=== PATIENT | male | born 1980 | race Caucasian/White ===

== ENCOUNTER 2018-06-30 06:53 | Emergency (ER) | payer MEDICAID ==
[2018-06-30] MEDS ORDERED: LIDOCAINE 2% VISCOUS 15 ML UDCUP PO ONE (07:03)
[2018-06-30] MEDS ORDERED: NS 1,000 ML IV ONE ×2 (07:03→08:22)
[2018-06-30] MEDS ORDERED: MAG HYDROX/AL HYDROX/SIMETH 30 ML UDCUP PO ONE (07:03)
[2018-06-30] MEDS ORDERED: ASPIRIN 81 MG CHEWABLE TAB PO ONE (07:03)
[2018-06-30] MEDS ORDERED: HYOSCYAMINE SULFATE 0.125 MG TAB PO ONE (07:03)
--- NOTE | 2018-06-30 07:07 | EDPHY ---
H & P Time Seen by Provider: 06/30/18 06:57 HPI/ROS: CHIEF COMPLAINT: Chest pain HISTORY OF PRESENT ILLNESS: Patient states that at 3:00 a.m. This morning he noticed some chest pain. He was awake as he was"not feeling right". The pain did not wake him up. He described it as pain in the upper back with sharp chest pain and pain to the"whole back". He also states there is pain radiating to left arm. He describes some diaphoresis although none now. At onset pain was dull, 4 to 5/10. He states it"kept ramping up"and was never gone since onset at 3:00 a.m.. Now it is about 8/10. He does describe some nausea but no vomiting. No diarrhea. Some shortness of breath but no wheezing. He states this feels completely different than his GERD. Patient denies any recent illnesses. Does drink alcohol, 6-8 beers couple days a week and had 6-8 beers last night. He did also take aspirin prior to arrival. He states he took 5- 325 mg aspirin tablets approximately 1 hr prior to arrival. He denies any recent exercise intolerance, dyspnea on exertion, leg swelling. REVIEW OF SYSTEMS: Constitutional: No fever, no chills. Eyes: No discharge. ENT: No sore throat. Cardiovascular: Per HPI no palpitations. Respiratory: No cough, some shortness of breath. Gastrointestinal: No abdominal pain, no vomiting. Nausea present. Genitourinary: No dysuria. Musculoskeletal: Upper back pain associated with this chest pain. Skin: No rashes. Neurological: No headache. General Appearance: Alert, no distress. Eyes: Pupils equal and round no pallor or injection. ENT, Mouth: Mucous membranes moist. Respiratory: There are no retractions, lungs are clear to auscultation. Cardiovascular: Regular rate and rhythm. No murmurs rubs or gallops, normal femoral pulses bilaterally. Gastrointestinal: Abdomen is soft and nontender, no masses, bowel sounds normal. Neurological: Awake, alert, no focal neurologic deficits. Skin: Warm and dry, no rashes. Musculoskeletal: Neck is supple nontender. Extremities are symmetrical, full range of motion, no edema. Psychiatric: Patient is oriented X 3, there is no agitation. Medical/surgical history: GERD Social history: 6-8 beers several days a week. No tobacco, uses cannabis. Smoking Status: Never smoked Constitutional: Initial Vital Signs Temperature (C) 36.5 C 06/30/18 06:55 Heart Rate 82 06/30/18 06:55 Respiratory Rate 18 06/30/18 06:55 Blood Pressure 141/89 H 06/30/18 06:55 O2 Sat (%) 96 06/30/18 06:55 O2 Delivery Mode Room Air Allergies/Adverse Reactions: No Known Allergies Allergy (Unverified 06/30/18 06:54) Home Medications: Medication Instructions Recorded Nexium 06/30/18 Medical Decision Making - Diagnostics EKG Interpretation: EKG performed for chest pain. EKG shows normal sinus rhythm with normal rate, normal axis, normal intervals. No ST T-wave changes to suggest ischemia or infarct. Impression normal EKG. 9:30 a.m. Repeat chest x-ray shows normal sinus rhythm at a rate of 50 for, no significant change from prior. Normal EKG. Imaging Results: Imaging Impressions Chest X-Ray 06/30/18 07:04 Impression: Suspect airways disease with no superimposed acute abnormality identified. Chest x-ray interpreted by myself shows no acute findings. Normal heart size. No infiltrates, pneumothorax, mediastinal widening. ED Course/Re-evaluation: 7:50 a.m. patient back from x-ray. Troponin negative, D-dimer negative, normal chest x-ray reviewed. Patient still with 7 8/10 pain. Differential Diagnosis: Differential diagnosis includes but is not limited to acute coronary syndrome, thoracic aortic dissection, gastritis, pancreatitis, gastroesophageal reflux disease, cholecystitis. After evaluation, likely GI source as patient very low/ no risk for coronary artery disease. No tenderness, elevated lipase, elevated liver function tests to suggest pancreatic or biliary etiology. Did discuss patient's somewhat heavy drinking with him and suspect his symptoms are from alcoholic gastritis or esophagitis. Given multiple medications to control pain. Also rehydrated with IV fluids. Eventually feeling better and taking p.o.. Encouraged him to follow up with primary care physician in the area although he has none at this time. Discussed return precautions in detail. Stable for outpatient follow-up. - Data Points Laboratory Results: 06/30/18 06/30/18 06/30/18 07:10 07:09 07:05 POC Sodium 145 mEq/L mEq/L (135-145) POC Potassium 4.1 mEq/L mEq/L (3.3-5.0) POC Chloride 104.0 mEq/L mEq/L (97-110) POC Total CO2 24 mEq/L mEq/L (22-31) POC BUN 9 mg/dL mg/dL (7-23) POC Creatinine 0.9 mg/dL mg/dL (0.7-1.3) POC Glucose 101 mg/dL H mg/dL (70-100) POC Calcium 9.7 mg/dL mg/dL (8.5-10.4) POC Total Bilirubin 0.7 mg/dL mg/dL (0.1-1.4) POC AST 35 IU/L IU/L (17-59) POC ALT 27 IU/L IU/L (21-72) POC Alk Phosphatase 73 IU/L IU/L (38-126) POC Troponin I 0.00 ng/mL ng/mL (0.00-0.08) POC Total Protein 7.9 g/dL g/dL (6.3-8.2) POC Albumin 4.4 g/dL g/dL (3.5-5.0) Lipase 70 IU/L IU/L (23-300) Medications Given: Fentanyl (Sublimaze) 50 mcg IVP Q45M PRN PRN Reason: Pain, Severe Unable to Take PO Last Admin: 06/30/18 08:24 Dose: 50 mcg Discontinued Medications Al Hydroxide/Mg Hydroxide (Maalox Susp) 30 ml PO ONCE ONE Stop: 06/30/18 07:04 Last Admin: 06/30/18 07:15 Dose: 30 ml Aspirin (Aspirin) 324 mg PO EDNOW ONE Stop: 06/30/18 07:04 Last Admin: 06/30/18 07:12 Dose: Not Given Fentanyl (Sublimaze) 50 mcg IVP EDNOW ONE Stop: 06/30/18 08:24 Last Admin: 06/30/18 08:29 Dose: Not Given Hyoscyamine Sulfate (Levsin, Hyomax-Sl) 0.25 mg PO ONCE ONE Stop: 06/30/18 07:04 Last Admin: 06/30/18 07:14 Dose: 0.25 mg Sodium Chloride (Ns) 1,000 mls @ 0 mls/hr IV EDNOW ONE; Wide Open PRN Reason: Protocol Stop: 06/30/18 07:04 Last Admin: 06/30/18 07:11 Dose: 1,000 mls Sodium Chloride (Ns) 1,000 mls @ 0 mls/hr IV EDNOW ONE; Wide Open PRN Reason: Protocol Stop: 06/30/18 08:23 Last Admin: 06/30/18 08:23 Dose: 1,000 mls Lidocaine (Lidocaine 2% Viscous) 15 ml PO ONCE ONE Stop: 06/30/18 07:04 Last Admin: 06/30/18 07:15 Dose: 15 ml Ondansetron HCl (Zofran) 4 mg IVP EDNOW ONE Stop: 06/30/18 07:14 Last Admin: 06/30/18 07:14 Dose: 4 mg Ranitidine HCl (Zantac) 50 mg IVP EDNOW ONE Stop: 06/30/18 09:08 Last Admin: 06/30/18 09:21 Dose: 50 mg Point of Care Test Results: CBC CBC Collection Date 06/30/18 CBC Collection Time 07:05 WBC 8.1 RBC 5.10 HGB 16.0 HCT 45.6 PLT 358 Neut # 5.6 Neut 68.0 LYMPH # 1.8 LYMPH 22.8 Other WBC # 0.7 Other WBC 9.2 MCV 89.4 Chemistry 06/30/18 06/30/18 07:10 07:09 POC Sodium 145 mEq/L mEq/L (135-145) POC Potassium 4.1 mEq/L mEq/L (3.3-5.0) POC Chloride 104.0 mEq/L mEq/L (97-110) POC Total CO2 24 mEq/L mEq/L (22-31) POC BUN 9 mg/dL mg/dL (7-23) POC Creatinine 0.9 mg/dL mg/dL (0.7-1.3) POC Glucose 101 mg/dL H mg/dL (70-100) POC Calcium 9.7 mg/dL mg/dL (8.5-10.4) POC Total Bilirubin 0.7 mg/dL mg/dL (0.1-1.4) POC AST 35 IU/L IU/L (17-59) POC ALT 27 IU/L IU/L (21-72) POC Alk Phosphatase 73 IU/L IU/L (38-126) POC Troponin I 0.00 ng/mL ng/mL (0.00-0.08) POC Total Protein 7.9 g/dL g/dL (6.3-8.2) POC Albumin 4.4 g/dL g/dL (3.5-5.0) D-Dimer D-Dimer Collection Date 06/30/18 D-Dimer Collection Time 07:05 D-Dimer (ng/ml) 100 Departure - Departure Clinical Impression: Gastritis Qualifiers: Gastritis type: alcoholic Chronicity: acute Gastritis bleeding: without bleeding Qualified Code(s): K29.20 - Alcoholic gastritis without bleeding Chest pain Qualifiers: Chest pain type: unspecified Qualified Code(s): R07.9 - Chest pain, unspecified Condition: Good Instructions: Gastritis (ED) Additional Instructions: Continue your Nexium at home as you have been using previously. Stay with bland foods today or until your feeling better. He can also try Maalox or similar [id number] medication for symptoms. Do try to cut down on your drinking. For the chest pain if you develop new or worsening symptoms you should return to the emergency department for further evaluation. You should also consider establishing a primary care doctor in the area. Referrals: NONE *PRIMARY CARE P,. [Primary Care Provider] - As per Instructions Winter López MD [Medical Doctor] - As per Instructions
[2018-06-30] MEDS ORDERED: ONDANSETRON 4 MG/2 ML VIAL ONE (07:12)
[2018-06-30] MEDS ORDERED: ONDANSETRON 4 MG/2 ML VIAL IVP ONE (07:13)
--- NOTE | 2018-06-30 07:40 | CPEKG ---
Test Reason : OPEN Blood Pressure : / mmHG Vent. Rate : 088 BPM Atrial Rate : 089 BPM P-R Int : 141 ms QRS Dur : 100 ms QT Int : 381 ms P-R-T Axes : 073 066 057 degrees QTc Int : 461 ms Sinus rhythm nonspecific interventricular conduction delay Confirmed by Dank Stoner ([id number]) on 06/30/2018 7:40:03 AM Referred By: Confirmed By:Dank Stoner
[2018-06-30] MEDS: fentaNYL 100 MCG/2 ML INJ IVP PRN ×2 (08:02→08:24)
[2018-06-30] MEDS ORDERED: fentaNYL 100 MCG/2 ML INJ IVP ONE (08:23)
[2018-06-30] MEDS ORDERED: RANITIDINE 50 MG/2 ML VIAL IVP ONE (09:07)
[2018-06-30 10:02] VITALS: BP 132/72
--- NOTE | 2018-07-04 17:00 | CPEKG ---
Test Reason : Chest Pain Blood Pressure : / mmHG Vent. Rate : 054 BPM Atrial Rate : 054 BPM P-R Int : 132 ms QRS Dur : 097 ms QT Int : 449 ms P-R-T Axes : 026 063 052 degrees QTc Int : [address] elev, probable normal early repol pattern Confirmed by Juan Marlow ([id number]) on 07/04/2018 5:00:06 PM Referred By: Confirmed By:Juan Marlow
== END 2018-06-30 10:32 | disposition home or self-care (01) ==
LOC: CED 06:53
DX: R07.9 Chest pain, unspecified (principal); K29.70 Gastritis, unspecified, without bleeding; K21.9 Gastro-esophageal reflux disease without esophagitis; E86.9 Volume depletion, unspecified
CPT/HCPCS: 71046-PO; 80053-PO; 84484-PO; 96374; J2405; J2780; J3010